=== PATIENT | female | born 1950 | race Caucasian/White ===

== ENCOUNTER 2017-05-16 10:05 | Emergency (ER) | payer MEDICARE ==
[2017-05-16] MEDS ORDERED: Aspirin Low Dose CHEW TAB* 81 MG PO ONE (10:19)
[2017-05-16 10:48] LABS: Hematocrit 38 % (35-47); Hemoglobin 12.9 g/dl (12.0-16.0); Mean Corpuscular HGB Conc 34 g/dl (31-36); Mean Corpuscular Hemoglobin 31 pg (27-31); Mean Corpuscular Volume 91 fL (80-97); Mean Platelet Volume 8 um3 (7.4-10.4); Red Cell Distribution Width 13 % (10.5-15); White Blood Count 7.5 10^3/ul (3.5-10.8)
--- NOTE | 2017-05-16 10:54 | RAD ---
HISTORY: Chest pain COMPARISONS: November 29, 2014 VIEWS:1: Single frontal portable view of the chest at 10:25 AM FINDINGS: LINES AND TUBES: None. CARDIOMEDIASTINAL SILHOUETTE: The cardiomediastinal silhouette is normal for portable technique. PLEURA: The costophrenic angles are sharp. No pleural abnormalities are noted. LUNG PARENCHYMA: The lungs are clear. ABDOMEN: The upper abdomen is clear. There is no subphrenic gas. BONES AND SOFT TISSUES: No bone or soft tissue abnormalities are noted. IMPRESSION: NO ACTIVE CARDIOPULMONARY DISEASE.
[2017-05-16 11:05] LABS: Albumin 4.5 g/dL (3.2-5.2); BUN/Creatinine Ratio 15.2 (8-20); Calcium 9.5 mg/dL (8.6-10.3); EGFR African American 94.2 (>60); EGFR Non-African American 73.3 (>60); Globulin 2.4 g/dL (2-4); Magnesium 2.1 mg/dL (1.9-2.7); Total Bilirubin 0.6 mg/dL (0.2-1.0); Total Protein 6.9 g/dL (6.4-8.9)
[2017-05-16 11:33] LABS: TSH (Thyroid Stimulating Horm) 0.95 mcIU/mL (0.34-5.60)
[2017-05-16] MEDS ORDERED: Furosemide IV* 10 MG/ML 2 ML VIAL (20 MG) IV SLOW PU ONE (12:26)
[2017-05-16] MEDS ORDERED: Acetaminophen TAB* 325 MG PO ONE (13:15)
--- NOTE | 2017-05-16 14:15 | ED ---
Lashonda Doherty Auryana, scribed for Colin Renee MD on 05/16/17 at 1032 . HPI Chest Pain - HPI Summary HPI Summary: 66 year old female presents with intermittent chest pain starting 4 days ago. The pain is located on the left side of her chest, does not radiates, and is not related to any activates or exertion. She characterizes the pain as an achy pressure. She reports that each time she has chest pain, NTG relieves it but then the pain returns after. She denies any current chest pain on ED physician visit. She also has left arm weakness, and reports that last night she had a headache, and "stomach ache". She reports that she took her BP at home last night - 130/68. She denies any nausea, vomiting, or any edema in the LE. 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 - History of Current Complaint Chief Complaint: EDChestPainROMI Time Seen by Provider: 05/16/17 10:19 Hx Obtained From: Patient Onset/Duration: Started Days Ago, Still Present Timing: Intermittent Initial Severity: Moderate Current Severity: None Pain Intensity: 6 - denies any CP now Pain Scale Used: 0-10 Numeric Chest Pain Location: Discrete at: - left side of chest Chest Pain Radiates: No Character: Pressure/Squeezing - achy pressure Alleviating Factor(s): NTG 123 Associated Signs and Symptoms: Positive: Chest Pain, Headaches, Weakness - left arm weakness, Other: - "stomach ache". Negative: Nausea, Vomiting, Edema Related History: Similar Episode/Dx as: - SEE HPI - Allergy/Home Medications Allergies/Adverse Reactions: Allergies Allergy/AdvReac Type Severity Reaction Status Date / Time Meperidine [From Demerol HCl] Allergy Mild Nausea And Verified 02/28/17 10:00 Vomiting Home Medications: Home Medications Gnepqkw-Bhhakmdjmyjud-Vzembkse [Excedrin Extra Strength] 1 tab PO TID PRN [History Confirmed 05/16/17] Atorvastatin* [Lipitor*] 20 mg PO BEDTIME 05/16/17 [History Confirmed 05/16/17] Biotin 5,000 mcg PO DAILY 05/16/17 [History Confirmed 05/16/17] Cholecalciferol [Vitamin D] 1,000 unit PO BID 05/16/17 [History Confirmed ] Cyanocobalamin TAB* [Vitamin B12 TAB*] 1,000 mcg PO SUWE 05/16/17 [History Confirmed 05/16/17] DULoxetine DR CAP* [Cymbalta CAP*] 60 mg PO DAILY 05/16/17 [History Confirmed ] Gabapentin CAP(*) [Neurontin 300 CAP(*)] 300 mg PO TID 05/16/17 [History Confirmed 05/16/17] Nitroglycerin 0.6 MG/HR PATCH* [Nitroglycerin 15 MG PATCH*] 1 patch TRANSDERM DAILY 05/16/17 [History Confirmed 05/16/17] Nitroglycerin TAB 0.4 MG* 0.4 mg SL Q5M PRN 05/16/17 [History Confirmed 05/16/17 ] Nortriptyline CAP* [Pamelor CAP*] 10 mg PO BEDTIME 05/16/17 [History Confirmed 05/16/17] [place]-3 Fatty Acids [Fish Oil 1200 mg] 2 cap PO DAILY 05/16/17 [History Confirmed 05/16/17] Spironolactone TAB* [Aldactone TAB*] 25 mg PO DAILY 05/16/17 [History Confirmed 05/16/17] Valsartan TAB* [Diovan TAB*] 80 mg PO DAILY 05/16/17 [History Confirmed 05/16/17 ] Vitamin E 1,000 unit PO DAILY 05/16/17 [History Confirmed 05/16/17] amLODIPine TAB* [Norvasc 5 mg TAB*] 5 mg PO BID 05/16/17 [History Confirmed ] PMH/Surg Hx/FS Hx/Imm Hx Endocrine/Hematology History: Denies: Hx Diabetes Cardiovascular History: Reports: Hx Angina, Hx Hypertension Denies: Hx Coronary Artery Disease, Hx Hypercholesterolemia, Hx Myocardial Infarction, Hx Pacemaker/ICD Respiratory History: Reports: Other Respiratory Problems/Disorders - CONNECTIVE TISSUE DISEASE Denies: Hx Asthma, Hx Chronic Obstructive Pulmonary Disease (COPD) History: Denies: Hx Renal Disease Sensory History: Denies: Hx Hearing Aid Psychiatric History: Denies: Hx Panic Disorder - Cancer History Hx Chemotherapy: No Hx Radiation Therapy: No - Surgical History Surgery Procedure, Year, and Place: BLADDER SURGERY DIALATION 1972. RIGHT HEEL REPAIR. GALLBLADDER. HYSTERECTOMY-LAP TUBAL. L5-S1 BACK SURGERY-NO METAL. RIGHT WRIST SURGERY-NO METAL Infectious Disease History: Denies: Traveled Outside the [place] in Last 30 Days - Family History Known Family History: Positive: Diabetes - Social History Occupation: Retired Lives: Alone Alcohol Use: Occasionally Hx Substance Use: No Substance Use Type: Reports: None Hx Tobacco Use: Yes Smoking Status (MU): Former Smoker Review of Systems Constitutional: Negative Negative: Fever Eyes: Negative ENT: Negative Positive: Chest Pain Respiratory: Negative Positive: Other - "stomach ache". Negative: Vomiting, Nausea Genitourinary: Negative Musculoskeletal: Negative Negative: Edema Skin: Negative Positive: Headache, Weakness - left arm weakness Psychological: Normal All Other Systems Reviewed And Are Negative: Yes Physical Exam - Summary Physical Exam Summary: VITAL SIGNS: Reviewed. GENERAL: Patient is a well-developed and nourished female who is lying comfortable in the stretcher. Patient is not in any acute respiratory distress. HEAD AND FACE: No signs of trauma. No ecchymosis, hematomas or skull depressions. No sinus tenderness. EYES: PERRLA, EOMI x 2, No injected conjunctiva, no nystagmus. EARS: Hearing grossly intact. Ear canals and tympanic membranes are within normal limits. MOUTH: Oropharynx within normal limits. NECK: Supple, trachea is midline, no adenopathy, no JVD, no carotid bruit, no c- spine tenderness, neck with full ROM. CHEST: Symmetric, no tenderness at palpation LUNGS: Clear to auscultation bilaterally. No wheezing or crackles. CVS: Regular rate and rhythm, S1 and S2 present, no murmurs or gallops appreciated. ABDOMEN: Soft, non-tender. No signs of distention. No rebound no guarding, and no masses palpated. Bowel sounds are normal. EXTREMITIES: FROM in all major joints, no edema, no cyanosis or clubbing. NEURO: Alert and oriented x 3. No acute neurological deficits. Speech is normal and follows commands. SKIN: Dry and warm. Triage Information Reviewed: Yes Vital Signs On Initial Exam: Initial Vitals Temp Pulse Resp BP Pulse Ox 97.8 F 64 20 137/71 98 05/16/17 10:06 05/16/17 10:05/16/17 10:06 05/16/17 10:05/16/17 10:06 Vital Signs Reviewed: Yes Diagnostics - Vital Signs Vital Signs Temp Pulse Resp BP Pulse Ox 05/16/17 10:06 97.8 F 64 20 137/71 98 - Laboratory Lab Results: Lab Results 05/16/17 05/16/17 05/16/17 Range/Units 10:40 10:40 10:40 WBC 7.5 (3.5-10.8) 10^3/ul RBC 4.20 (4.0-5.4) 10^6/ul Hgb 12.9 (12.0-16.0) g/dl Hct 38 (35-47) % MCV 91 (80-97) fL MCH 31 (27-31) pg MCHC 34 (31-36) g/dl RDW 13 (10.5-15) % Plt Count 360 (150-450) 10^3/ul MPV 8 (7.4-10.4) um3 Neut % (Auto) 59.4 (38-83) % Lymph % (Auto) 27.3 (25-47) % Nobles % (Auto) 8.2 (1-9) % Eos % (Auto) 4.0 (0-6) % Baso % (Auto) 1.1 (0-2) % Absolute Neuts (auto) 4.4 (1.5-7.7) 10^3/ul Absolute Lymphs (auto) 2.0 (1.0-4.8) 10^3/ul Absolute Monos (auto) 0.6 (0-0.8) 10^3/ul Absolute Eos (auto) 0.3 (0-0.6) 10^3/ul Absolute Basos (auto) 0.1 (0-0.2) 10^3/ul Absolute Nucleated RBC 0.01 10^3/ul Nucleated RBC % 0.1 APTT 32.3 (26.0-36.3) seconds Sodium 132 L (133-145) mmol/L Potassium 4.0 (3.5-5.0) mmol/L Chloride 101 (101-111) mmol/L Carbon Dioxide 26 (22-32) mmol/L Anion Gap 5 (2-11) mmol/L BUN 12 (6-24) mg/dL Creatinine 0.79 (0.51-0.95) mg/dL Est GFR ( Amer) 94.2 (>60) Est GFR (Non-Af Amer) 73.3 (>60) BUN/Creatinine Ratio 15.2 (8-20) Glucose 97 (70-100) mg/dL Lactic Acid (0.5-2.0) mmol/L Calcium 9.5 (8.6-10.3) mg/dL Magnesium 2.1 (1.9-2.7) mg/dL Total Bilirubin 0.60 (0.2-1.0) mg/dL AST 15 (13-39) U/L ALT 13 (7-52) U/L Alkaline Phosphatase 66 (34-104) U/L Total Creatine Kinase 64 (10-223) U/L CK-MB (CK-2) 1.7 (0.6-6.3) ng/mL Troponin I 0.00 (<0.04) ng/mL B-Natriuretic Peptide ( - 100) pg/mL Total Protein 6.9 (6.4-8.9) g/dL Albumin 4.5 (3.2-5.2) g/dL Globulin 2.4 (2-4) g/dL Albumin/Globulin Ratio 1.9 (1-3) TSH 0.95 (0.34-5.60) mcIU/mL 05/16/17 05/16/17 05/16/17 Range/Units 10:40 10:40 13:10 WBC (3.5-10.8) 10^3/ul RBC (4.0-5.4) 10^6/ul Hgb (12.0-16.0) g/dl Hct (35-47) % MCV (80-97) fL MCH (27-31) pg MCHC (31-36) g/dl RDW (10.5-15) % Plt Count (150-450) 10^3/ul MPV (7.4-10.4) um3 Neut % (Auto) (38-83) % Lymph % (Auto) (25-47) % Nobles % (Auto) (1-9) % Eos % (Auto) (0-6) % Baso % (Auto) (0-2) % Absolute Neuts (auto) (1.5-7.7) 10^3/ul Absolute Lymphs (auto) (1.0-4.8) 10^3/ul Absolute Monos (auto) (0-0.8) 10^3/ul Absolute Eos (auto) (0-0.6) 10^3/ul Absolute Basos (auto) (0-0.2) 10^3/ul Absolute Nucleated RBC 10^3/ul Nucleated RBC % APTT (26.0-36.3) seconds Sodium (133-145) mmol/L Potassium (3.5-5.0) mmol/L Chloride (101-111) mmol/L Carbon Dioxide (22-32) mmol/L Anion Gap (2-11) mmol/L BUN (6-24) mg/dL Creatinine (0.51-0.95) mg/dL Est GFR ( Amer) (>60) Est GFR (Non-Af Amer) (>60) BUN/Creatinine Ratio (8-20) Glucose (70-100) mg/dL Lactic Acid 1.0 (0.5-2.0) mmol/L Calcium (8.6-10.3) mg/dL Magnesium (1.9-2.7) mg/dL Total Bilirubin (0.2-1.0) mg/dL AST (13-39) U/L ALT (7-52) U/L Alkaline Phosphatase (34-104) U/L Total Creatine Kinase (10-223) U/L CK-MB (CK-2) (0.6-6.3) ng/mL Troponin I 0.09 H* (<0.04) ng/mL B-Natriuretic Peptide 464 H ( - 100) pg/mL Total Protein (6.4-8.9) g/dL Albumin (3.2-5.2) g/dL Globulin (2-4) g/dL Albumin/Globulin Ratio (1-3) TSH (0.34-5.60) mcIU/mL Result Diagrams: 05/16/17 10:40 05/16/17 10:40 Lab Statement: Any lab studies that have been ordered have been reviewed, and results considered in the medical decision making process. - Radiology CXR Xray Interpretation: No Acute Changes Radiology Interpretation Completed By: Radiologist - EKG 10:20 EKG Interpretation: sinus rhythm @ 60 bpm, no ST elevation Re-Evaluation - Re-Evaluation First Eval Re-Evaluation Time: 13:30 - discussed discharge and PCP F/U Chest Pain Course/Dx - Course Assessment/Plan: 66 year old female presents with intermittent chest pain starting 4 days ago. The pain is located on the left side of her chest, does not radiates, and is not related to any activates or exertion. She characterizes the pain as an achy pressure. She reports that each time she has chest pain, NTG relieves it but then the pain returns after. She denies any current chest pain on ED physician visit. She also has left arm weakness, and reports that last night she had a headache, and "stomach ache". She reports that she took her BP at home last night - 130/68. She denies any nausea, vomiting, or any edema in the LE. 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 CXR - NAD. EKG- sinus rhythm @ 60 bpm, no ST elevation. I discussed the patient with Dr. Roberson, and he recommended discharge and follow up with Dr. Birch. I checked the second troponin and it has increased to 0.09. She continues to be asymptomatic. However because of the bump in troponin I discussed the case with Dr. Martinez and he accepted the patient for admission. She is hemodynamically stable and A+O X 3 - Chest Pain Differential Diagnosis/HQI/PQRI: Acute ID, ACS, Angina, CHF, Chest Wall, Lower Respiratory Infection, Pulmonary Edema - Diagnoses Provider Diagnoses: Increased troponin r/o ACS, CHF exacerbation - Provider Notifications Discussed Care Of Patient With: Onesimo Casanova Time Discussed With Above Provider: 13:51 - agrees to admit Instructed by Provider To: Admit As Inpatient Discharge - Discharge Plan Condition: Stable Disposition: ADMITTED TO [facility] The documentation as recorded by the Lashonda fang Auryana accurately reflects the service I personally performed and the decisions made by , Colin Renee MD.
[2017-05-16 16:54] VITALS: BP 126/69
== END 2017-05-16 16:54 | disposition home or self-care (01) ==
LOC: ED 10:05
DX: I50.9 Heart failure, unspecified (principal); R07.9 Chest pain, unspecified; R51 Headache; R53.1 Weakness; Z87.891 Personal history of nicotine dependence
CPT/HCPCS: 36415; 71010; 80053; 82550; 82553; 83605; 83735; 83880; 84443; 84484; 85025; 85730; 93005; 99283; A9270-GY; J1940

== ENCOUNTER 2018-06-17 18:50 | Emergency (ER) | payer MEDICARE ==
[2018-06-17 19:00] VITALS: BP 134/87
== END 2018-06-17 21:05 | disposition left against medical advice (07) ==
LOC: ED 18:50
DX: R11.0 Nausea (principal); Z53.21 Procedure and treatment not carried out due to patient leaving prior to being seen by health care provider; R10.84 Generalized abdominal pain

== ENCOUNTER 2018-06-19 14:20 | Emergency (ER) | payer MEDICARE ==
[2018-06-19] MEDS ORDERED: Ondansetron INJ* 2 MG/ML VIAL IV ONE (17:24)
[2018-06-19] MEDS ORDERED: NS 0.9% 1000 ML* 1,000 ML IV ONE (17:24)
[2018-06-19 17:48] LABS: ABS Basophils 0.1 10^3/ul (0-0.2); ABS Eosinophils 0.2 10^3/ul (0-0.6); ABS Lymphocytes 2.2 10^3/ul (1.0-4.8); ABS Monocytes 0.7 10^3/ul (0-0.8); ABS Neutrophils 6.3 10^3/ul (1.5-7.7); ABS Nucleated RBC 0 10^3/ul; Eosinophil % 2.3 % (0-6); Hematocrit 38 % (35-47); Hemoglobin 13.1 g/dl (12.0-16.0); Mean Corpuscular HGB Conc 35 g/dl (31-36); Mean Corpuscular Hemoglobin 30 pg (27-31); Mean Corpuscular Volume 88 fL (80-97); Mean Platelet Volume 7.7 um3 (7.4-10.4); Nucleated Red Blood Cells % 0; Platelet Count 430 10^3/ul (150-450); Red Cell Distribution Width 13 % (10.5-15); White Blood Count 9.6 10^3/ul (3.5-10.8)
[2018-06-19 17:57] LABS: INR 0.97 (0.77-1.02)
--- NOTE | 2018-06-19 17:57 | ED ---
Abdominal Pain/Female - HPI Summary HPI Summary: Patient presents with right upper abdominal/rib discomfort and fullness. She's noticed this gradually progressing over the past week. Associated symptoms include decreased appetite the past couple of days. As a result she has not really had any bowel movements if any. She is still passing gas. She doesn't have louie nausea but doesn't feel like eating. Denies fevers, chills, vomiting , chest pain, shortness of breath. She does feel like she is retaining fluids over the past couple of weeks. History of CHF - does not feel this is worse as of late. She reports this is been evaluated recently by her contract paralegal was also monitoring her symptoms. She takes hydrochlorothiazide daily and torsemide as needed. No lower extremity edema however her abdomen is full and bloated. She feels wiped out in general is typically an active person - is having a hard time keeping up with her typical activities. Was seen by her PCP a month ago and had an elevated alkaline phosphatase. This resulted in an abdominal ultrasound which showed a fatty liver but otherwise normal organs. She's also had intermittent increase in platelets however these are normal as of late. She's had evaluation through hematology oncology with Dr. Tucker who reports he "didn't find leukemia" per patient. She denies history of alcohol abuse however she does take multiple meds not only for fibromyalgia and hypertension but also headaches. She is followed by rheumatology and was on a course of methotrexate in the past however it was not helping her symptoms so it was stopped. She sees Dr. Burger for headaches and white matter disease which he follows with MRI's. She's had multiple abdominal surgeries including cholecystectomy and VANDANA. No history of bowel obstruction. 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" Denies: Hx Diabetes Cardiovascular History: Reports: Hx Angina, Hx Congestive Heart Failure, Hx Hypertension Denies: Hx Coronary Artery Disease, Hx Hypercholesterolemia, Hx Myocardial Infarction, Hx Pacemaker/ICD Respiratory History: Denies: Hx Asthma, Hx Chronic Obstructive Pulmonary Disease (COPD) GI History: Reports: Hx Gall Bladder Disease - s/p cholecystectomy, Hx Hiatal Hernia Denies: Hx Obstructive Bowel History: Denies: Hx Renal Disease Sensory History: Denies: Hx Hearing Aid Psychiatric History: Denies: Hx Panic Disorder - Cancer History Hx Chemotherapy: No Hx Radiation Therapy: No - Surgical History Surgery Procedure, Year, and Place: BLADDER SURGERY DIALATION 1972. RIGHT HEEL REPAIR. GALLBLADDER. HYSTERECTOMY-LAP TUBAL. L5-S1 BACK SURGERY-NO METAL (DISCECTOMY 98);. RIGHT WRIST SURGERY-NO METAL Infectious Disease History: No Infectious Disease History: Denies: Traveled Outside the [place] in Last 30 Days - Family History Known Family History: Positive: Diabetes - Social History Lives: With Family - and 90 y.o. father Alcohol Use: Occasionally Hx Substance Use: No Substance Use Type: Reports: None Hx Tobacco Use: Yes Smoking Status (MU): Former Smoker Review of Systems Positive: Fatigue. Negative: Fever, Chills ENT: Negative Negative: Sore Throat Cardiovascular: Negative Negative: Palpitations, Chest Pain Respiratory: Negative Negative: Shortness Of Breath, Cough Positive: Abdominal Pain, Nausea. Negative: Vomiting, Diarrhea Genitourinary: Negative Negative: dysuria, frequency, flank pain, urgency Musculoskeletal: Negative Skin: Negative Positive: Headache - has a dull MCINTYRE which is not abnormal for her - does not want anything for pain Psychological: Normal - concerned about feeling ill but calm and polite All Other Systems Reviewed And Are Negative: Yes Physical Exam Triage Information Reviewed: Yes Vital Signs On Initial Exam: Initial Vitals Temp Pulse Resp BP Pulse Ox 98.4 F 71 16 162/94 95 06/19/18 14:23 06/19/18 14:23 06/19/18 14:23 06/19/18 14:23 06/19/18 14:23 Vital Signs Reviewed: Yes Appearance: Positive: Well-Nourished, Ill-Appearing - appears mildly ill, fatigued, Pain Distress - appears mildly uncomfortable - lying on stretcher Skin: Positive: Warm, Skin Color Reflects Adequate Perfusion, Dry - no ecchymosis over ab/flanks Head/Face: Positive: Normal Head/Face Inspection Eyes: Positive: Normal, EOMI, Other: - possibly early signs of icteric sclera ENT: Positive: Hearing grossly normal, Pharynx normal - oral mucosa dry (pt reports this happens from meds) Neck: Positive: Supple, Nontender Respiratory/Lung Sounds: Positive: Clear to Auscultation, Breath Sounds Present. Negative: Rales, Rhonchi, Wheezes Cardiovascular: Positive: Normal, RRR, S1, S2. Negative: Murmur, Rub, Leg Edema Left, Leg Edema Right Abdomen Description: Positive: Nontender - entire upper abdomen is full, firm and w/ TTP - no rebounding. Negative: Guarding Bowel Sounds: Positive: Hypoactive Musculoskeletal: Positive: Normal, Strength/ROM Intact Neurological: Positive: Normal, Sensory/Motor Intact, Alert, Oriented to Person Place, Time, CN Intact II-III Psychiatric: Positive: Normal - pleasant, cooperative Diagnostics - Vital Signs Vital Signs Temp Pulse Resp BP Pulse Ox 06/19/18 14:23 98.4 F 71 16 162/94 95 - Laboratory Lab Results: Lab Results 06/19/18 Range/Units 17:35 WBC 9.6 (3.5-10.8) 10^3/ul RBC 4.30 (4.00-5.40) 10^6/ul Hgb 13.1 (12.0-16.0) g/dl Hct 38 (35-47) % MCV 88 (80-97) fL MCH 30 (27-31) pg MCHC 35 (31-36) g/dl RDW 13 (10.5-15) % Plt Count 430 (150-450) 10^3/ul MPV 7.7 (7.4-10.4) um3 Neut % (Auto) 66.2 (38-83) % Lymph % (Auto) 23.0 L (25-47) % Alfalfa % (Auto) 7.7 H (0-7) % Eos % (Auto) 2.3 (0-6) % Baso % (Auto) 0.8 (0-2) % Absolute Neuts (auto) 6.3 (1.5-7.7) 10^3/ul Absolute Lymphs (auto) 2.2 (1.0-4.8) 10^3/ul Absolute Monos (auto) 0.7 (0-0.8) 10^3/ul Absolute Eos (auto) 0.2 (0-0.6) 10^3/ul Absolute Basos (auto) 0.1 (0-0.2) 10^3/ul Absolute Nucleated RBC 0 10^3/ul Nucleated RBC % 0 Result Diagrams: 06/19/18 17:35 Lab Statement: Any lab studies that have been ordered have been reviewed, and results considered in the medical decision making process. Abdominal Pain Fem Course/Dx - Course Course Of Treatment: Patient presents with progressive upper abdominal fullness and 2 days of decreased appetite. She has known increase in her alkaline phosphatase and so further liver workup was ordered today as well as GGT to rule out that her versus bone involvement. She is a history of hiatal hernia and so CT was ordered to assess the status. ET and labs will also evaluate for pancreatic issues, bowel obstruction, abnormal lymph nodes or lytic lesions in the event that alkaline phosphatase is elevated for bone pathology. Patient reports she does not need anything for pain at this time. IV fluids were ordered as she has a dry mouth and has not been eating or drinking much the past couple of days. If BMP is elevated or renal function appears impaired, IV fluids may be slowed or stopped completely. Patient signed out to Mili MAYA in stable condition. - Diagnoses Provider Diagnoses: Abdominal fullness Discharge - Discharge Plan Referrals: Tangela Elizondo NP [Primary Care Provider] -
[2018-06-19 18:02] LABS: Urine Appearance Clear; Urine Blood 1+ (Negative); Urine Color Yellow; Urine Ketones Negative (Negative); Urine Protein Negative (Negative); Urine Red Blood Cell 1+(3-5/hpf) (Absent); Urine Specific Gravity 1.012 (1.010-1.030); Urine Urobilinogen Negative (Negative); Urine White Blood Cell Trace(0-5/hpf) (Absent)
[2018-06-19] MEDS ORDERED: Iohexol 300* (CONTRAST) 10 ML SDV IV ONE (18:29)
--- NOTE | 2018-06-19 19:07 | RAD ---
INDICATION: Upper abdominal pain. Constipation. COMPARISON: Abdominal sonogram May 27, 2018 TECHNIQUE: Axial source images were obtained from the hemidiaphragms to the symphysis pubis following administration of oral and intravenous contrast. 91 mL Omnipaque 300 was utilized. Coronal and sagittal reconstructed images were acquired. Lung bases: The lung bases are clear. There is cardiac pacemaker artifact. Liver: The liver is enlarged with findings of hepatic steatosis. There are no masses. There is no ductal dilatation. Gallbladder: Cholecystectomy. Spleen: The spleen is normal in size. There are no masses. Pancreas: There is no focal pancreatic mass or ductal dilatation. Adrenal glands: There is no evidence of adrenal mass. Kidneys: The kidneys are normal in size and position. There are prompt nephrograms and there is prompt excretion bilaterally. There are no renal parenchymal masses. There is no evidence of nephrolithiasis. Adenopathy: There is no evidence of adenopathy by size criteria. Fluid collections: There are no free or localized fluid collections. Vessels:There are no significant atherosclerotic changes involving the aorta. There is no focal aneurysm. The iliac vessels are normal in caliber. The IVC appears normal. GI tract: There is a small hiatal hernia. The upper GI tract is otherwise unremarkable. There is a large amount of stool throughout the colon. Which appears mildly distended. There is no obstruction Pelvic organs: Hysterectomy. No adnexal mass Bladder: There are no bladder masses. Abdominal and pelvic soft tissues: The extraperitoneal abdominal and pelvic soft tissues appear normal.. Osseous structures: There are no acute osseous findings. Other: None IMPRESSION: 1. Hepatomegaly with hepatic steatosis 2. Small hiatal hernia. 3. Large amount retained stool in mildly distended colon
[2018-06-19] MEDS ORDERED: Ketorolac INJ* 30 MG/ML 1 ML VIAL IV PUSH ONE (19:40)
--- NOTE | 2018-06-19 19:40 | ED ---
Progress - Progress Note Progress Note: patient signed out by shonda pending labs and CT labs wbc normal. lft normal. urine probably contaminant CT shows: IMPRESSION: 1. Hepatomegaly with hepatic steatosis 2. Small hiatal hernia. 3. Large amount retained stool in mildly distended colon discussed with patient and will treat with magnesium citrate and colace for constipation. Course/Dx - Course Course Of Treatment: Patient presents with progressive upper abdominal fullness and 2 days of decreased appetite. She has known increase in her alkaline phosphatase and so further liver workup was ordered today as well as GGT to rule out that her versus bone involvement. She is a history of hiatal hernia and so CT was ordered to assess the status. ET and labs will also evaluate for pancreatic issues, bowel obstruction, abnormal lymph nodes or lytic lesions in the event that alkaline phosphatase is elevated for bone pathology. Patient reports she does not need anything for pain at this time. IV fluids were ordered as she has a dry mouth and has not been eating or drinking much the past couple of days. CT shows constipation. labs wnl. will treat with mg citrate and colace. patient understand and agrees with plan. - Diagnoses Provider Diagnoses: Abdominal pain, Constipation Discharge - Sign-Out/Discharge Documenting (check all that apply): Receiving Sign-Out Receiving patient FROM: Shonda Joseph - Discharge Plan Condition: Good Disposition: HOME Prescriptions: Docusate CAP* [Colace Cap*] 100 mg PO DAILY #21 cap Patient Education Materials: Constipation (ED) Referrals: Tangela Elizondo, TEST ENGINE EVALUATOR [Primary Care Provider] - Additional Instructions: take magnesium citrate once Take Colace daily Follow up with primary within 5 days Return to ED if develop any new or worsening symptoms - Billing Disposition and Condition Condition: GOOD Disposition: Home
[2018-06-19] MEDS ORDERED: Magnesium CITRATE* 300 ML BTL PO ONE (19:46)
[2018-06-19 20:38] VITALS: BP 153/88
== END 2018-06-19 20:35 | disposition home or self-care (01) ==
LOC: ED 14:20
DX: R10.11 Right upper quadrant pain (principal); R74.8 Abnormal levels of other serum enzymes; K44.9 Diaphragmatic hernia without obstruction or gangrene; K76.0 Fatty (change of) liver, not elsewhere classified; K63.89 Other specified diseases of intestine; Z90.710 Acquired absence of both cervix and uterus; Z87.891 Personal history of nicotine dependence; Z88.5 Allergy status to narcotic agent
CPT/HCPCS: 36415; 74177; 80053; 81003; 81015; 82140; 82977; 83605; 83690; 83735; 83880; 85025; 85610; 85730; 86140; 87077; 87086; 96374; 96375; 99283; A9270-GY; J1885; J2405; Q9967

== ENCOUNTER 2019-08-20 18:16 | Emergency (ER) | payer MEDICARE ==
--- NOTE | 2019-08-20 20:22 | ED ---
Lower Extremity - HPI Summary HPI Summary: This patient is a 68 year old female presenting to [facility] with a chief complaint of left knee pain and swelling. She went to Dr. Najera and was suppose to get a dopplar US to evaluate for a popliteal cyst on Friday. Pain has been getting worse over time. She states she was experiencing pain and swelling to the medial knee before but now states she is also experiencing pain and swelling in the dorsal knee. The patient rates her pain 9/10 in severity. Pt denies any fever, chills, erythema of eyes, sore throat, CP, SOB, cough, abdominal pain, N/ V, dysuria, hematuria, myalgia, rash, or dizziness. - History of Current Complaint Chief Complaint: EDExtremityLower Stated Complaint: LEFT KNEE PAIN PER PT Time Seen by Provider: 08/20/19 19:57 Hx Obtained From: Patient Pain Intensity: 9 Pain Scale Used: 0-10 Numeric Associated Signs And Symptoms: Positive: Swelling, Knee Pain - Allergies/Home Medications Allergies/Adverse Reactions: Allergies Allergy/AdvReac Type Severity Reaction Status Date / Time meperidine [From Demerol] Allergy Nausea And Verified 08/13/19 14:40 Vomiting PMH/Surg Hx/FS Hx/Imm Hx Endocrine/Hematology History: Reports: Hx Blood Disorders - intermittent platelet elevation Denies: Hx Diabetes Cardiovascular History: Reports: Hx Angina, Hx Congestive Heart Failure, Hx Hypertension, Hx Pacemaker/ICD - BeDo - NO MRIs - NOT COMP W/ [facility] MRI UNTIS Denies: Hx Coronary Artery Disease, Hx Hypercholesterolemia, Hx Myocardial Infarction Respiratory History: Reports: Other Respiratory Problems/Disorders - CONNECTIVE TISSUE DISEASE Denies: Hx Asthma, Hx Chronic Obstructive Pulmonary Disease (COPD) GI History: Reports: Hx Gall Bladder Disease - s/p cholecystectomy, Hx Hiatal Hernia Denies: Hx Obstructive Bowel History: Denies: Hx Renal Disease Musculoskeletal History: Denies: Hx Osteoporosis Sensory History: Denies: Hx Hearing Aid Psychiatric History: Denies: Hx Panic Disorder - Cancer History Hx Chemotherapy: No Hx Radiation Therapy: No - Surgical History Surgery Procedure, Year, and Place: BeDo - NO MRIs - NOT COMP W/ [facility] MRI UNTIS Infectious Disease History: No Infectious Disease History: Denies: Traveled Outside the [place] in Last 30 Days - Family History Known Family History: Positive: Diabetes - Social History Alcohol Use: None Hx Substance Use: No Substance Use Type: Reports: None Hx Tobacco Use: Yes Smoking Status (MU): Former Smoker Review of Systems Negative: Fever, Chills Negative: Erythema Negative: Sore Throat Negative: Chest Pain Negative: Shortness Of Breath, Cough Negative: Abdominal Pain, Vomiting, Nausea Negative: dysuria, hematuria Positive: Edema, Other - Left knee pain. Negative: Myalgia Negative: Rash Neurological: Other - Neg: Dizziness All Other Systems Reviewed And Are Negative: No Physical Exam - Summary Physical Exam Summary: Constitutional: Well-developed, Well-nourished, Alert. (-) Distressed Skin: Warm, Dry. Lump overlying her patellar tendon with focal mild fluctuance and tenderness over the medial meniscus, but also tenderness over the lateral meniscus. No erythema or induration. HENT: Normocephalic; Atraumatic Eyes: Conjunctiva normal Neck: Musculoskeletal ROM normal neck. (-) JVD, (-) Stridor, (-) Tracheal deviation Cardio: Rhythm regular, rate normal, Heart sounds normal; Intact distal pulses; The pedal pulses are 2+ and symmetric. Radial pulses are 2+ and symmetric. (-) Murmur Pulmonary/Chest wall: Effort normal. (-) Respiratory distress, (-) Wheezes, (-) Rales Abd: Soft, (-) tenderness, (-) Distension, (-) Guarding, (-) Rebound Musculoskeletal: (-) Edema Lymph: (-) Cervical adenopathy Neuro: Alert, Oriented x3 Psych: Mood and affect Normal Triage Information Reviewed: Yes Vital Signs On Initial Exam: Initial Vitals Temp Pulse Resp BP Pulse Ox 97.7 F 70 16 142/88 97 08/20/19 18:32 08/20/19 18:32 08/20/19 18:32 08/20/19 18:32 08/20/19 18:32 Vital Signs Reviewed: Yes Procedures - Procedure Summary Procedure Summary: JOINT ASPIRATION INDICATION: KNEE SWELLING L KNEE PHYSICIAN: GHULAM ARZOLA MD DETAILS: INFORMED CONSENT, RISKS INCLUDING INFECTION, BLEEDING, NERVE INJURY UNDERSTOOD. TIMEOUT OCCURRED. TOTAL OF 10 ML OF 2% LIDO/EPI INSTILLED. MEDIAL APPROACH. TOTAL OF 20 ML OF SANGUINOUS JOINT FLUID ASPIRATED, SENT TO LAB, TOLERATED WELL. - Sedation Patient Received Moderate/Deep Sedation with Procedure: No Diagnostics - Vital Signs Vital Signs Temp Pulse Resp BP Pulse Ox 08/20/19 18:32 97.7 F 70 16 142/88 97 - Laboratory Result Diagrams: 08/20/19 21:43 08/20/19 21:43 Lab Statement: Any lab studies that have been ordered have been reviewed, and results considered in the medical decision making process. - Ultrasound No standard instances Ultrasound Interpretation Completed By: Radiologist Summary of Ultrasound Findings: LLE: 1. Negative LLE venous duplex exam without evidence of deep venous thrombosis. 2. Fluid collection at the medial aspect of the knee measuring 4.6 x 0.5 x 1.9 cm which may reflect a miniscal cyst. ED Provider has reviewed this report. Lower Extremity Course/Dx - Course Course Of Treatment: This patient is a 68 year old female presenting to [facility] with a chief complaint of left knee pain and swelling. Physical exam reveals Lump overlying her patellar tendon with focal mild fluctuance and tenderness over the medial meniscus, but also tenderness over the lateral meniscus. US LLE reveals Fluid collection at the medial aspect of the knee measuring 4.6 x 0.5 x 1.9 cm which may reflect a miniscal cyst. The patient will be signed out to Dr. Curiel pending bloodwork and consult at shift change 2200. As the patient has elevated white blood cell count, and also swelling on the medial aspect of the way, we didn't pursue the aspiration. Inflammatory markers are negative, fluid did not appear concerning. Plan for outpatient follow-up with orthopedics on Friday. The patient was provided crutches in the emergency department she was comfortable with this. We also provided a paper prescription for tramadol, and see electronic prescribing system was unable to transmit to her pharmacy. The prescription was for tramadol 50 mg 1 tablet every 12 hours, 8 tablets. No refills. - Diagnoses Provider Diagnoses: Knee swelling Discharge ED - Sign-Out/Discharge Documenting (check all that apply): Patient Departure - Discharge Plan Condition: Good Disposition: HOME Prescriptions: traMADol TAB* [Ultram*] 50 mg PO Q12H PRN #8 tab MDD 2 PRN Reason: Pain - Severe traMADol TAB* [Ultram*] 50 mg PO Q12H PRN #8 tab MDD 2 PRN Reason: Pain - Severe Patient Education Materials: Swollen Knee Joint (ED) Referrals: Adryan Bush MD [Medical Doctor] - (FRIDAY) Additional Instructions: Return to the emergency room for fever, or worse symptoms. - Billing Disposition and Condition Condition: GOOD Disposition: Home - Attestation Statements Document Initiated by Oliibe: Yes Documenting Scribe: Maynor Howard Provider For Whom William is Documenting (Include Credential): Ghulam Arzola MD Scribe Attestation: IMaynor, scribed for Ghulam Arzola MD on 08/21/19 at 0014. Scribe Documentation Reviewed: Yes Provider Attestation: The documentation as recorded by the scribe, Maynor Howard accurately reflects the service I personally performed and the decisions made by me, Ghulam Arzola MD Status of Scribe Document: Viewed
[2019-08-20 21:52] LABS: Hematocrit 37 % (35-47); Hemoglobin 12.4 g/dL (12.0-16.0); Mean Corpuscular HGB Conc 34 g/dL (31-36); Mean Corpuscular Hemoglobin 30 pg (27-31); Mean Corpuscular Volume 88 fL (80-97); Mean Platelet Volume 7.6 fL (7.4-10.4); Platelet Count 441 10^3/uL (150-450); Red Blood Count 4.18 10^6 /uL (3.70-4.87); Red Cell Distribution Width 13 % (10-15); White Blood Count 11.6 10^3/uL (3.5-10.8)
[2019-08-20 22:09] LABS: Albumin 4.4 g/dL (3.2-5.2); Albumin/Globulin Ratio 1.6 (1-3); BUN/Creatinine Ratio 12.8 (8-20); C Reactive Protein 5.27 mg/L (<8.01); Calcium 9.4 mg/dL (8.6-10.3); EGFR African American 79.9 (>60); Globulin 2.7 g/dL (2-4); Potassium 4.2 mmol/L (3.5-5.0); Total Bilirubin 0.4 mg/dL (0.2-1.0); Total Protein 7.1 g/dL (6.4-8.9); Uric Acid 4.5 mg/dL (2.3-6.6)
[2019-08-20] MEDS ORDERED: traMADol TAB* 50 MG PO ONE (22:42)
[2019-08-20] MEDS ORDERED: Lidocaine 2% w EPI 1:100,000* 20 ML MDV VIAL INJ ONE (22:47)
[2019-08-20] MEDS ORDERED: Lidocaine 2% w/ EPI 1:200,000* 20 ML SDV VIAL ONE (23:32)
[2019-08-21 00:12] LABS: Body Fluid Source Synovial Fluid
[2019-08-21 00:41] VITALS: BP 129/79
[2019-08-21 13:06] LABS: Body Fluid Mono 52 %
[2019-08-23 17:33] LABS: Fluid Type, Glucose SYNOVIAL
== END 2019-08-21 00:39 | disposition home or self-care (01) ==
LOC: ED 18:16
DX: M25.462 Effusion, left knee (principal); M17.12 Unilateral primary osteoarthritis, left knee; R60.0 Localized edema; I11.0 Hypertensive heart disease with heart failure; I50.9 Heart failure, unspecified; Z95.810 Presence of automatic (implantable) cardiac defibrillator; L94.9 Localized connective tissue disorder, unspecified; Z88.5 Allergy status to narcotic agent; Z87.891 Personal history of nicotine dependence
CPT/HCPCS: 20610; 36415; 80053; 82945; 83605; 83986; 84550; 85027; 86140; 86618; 87070; 87205; 89051; 99282; A9270-GY

== ENCOUNTER 2019-12-02 07:20 | Day surgery (SDC) | payer MEDICARE ==
[~2019-12-02 07:20] MED LIST: Buffered Lidocaine 1% SYRIN* 1 ML/SYRINGE INTRADERM ONE; Famotidine IV* 10 MG/ML 2 ML (20 mg) IV ONE; Lactated Ringers 1000 ML Bag* 1,000 ML IV SCH
[2019-12-02] MEDS ORDERED: Midazolam* 1 MG/ML 2 ML VIAL (2 MG) ONE (08:37)
[2019-12-02] MEDS ORDERED: Bupivacaine 0.25% SDV PF* 10 ML VIAL INJ ONE (08:49)
[2019-12-02] MEDS ORDERED: Lidocaine 1% w EPI 1:100,000* MDV 20 ML VIAL ONE (08:49)
[2019-12-02] MEDS ORDERED: Dexamethasone IV* 4 MG/ML 1 ML (4 MG) ONE ×2 (09:14→09:42)
[2019-12-02] MEDS ORDERED: Propofol* 10 MG/ML 20 ML BTL ONE (09:14)
[2019-12-02] MEDS ORDERED: diPHENhydraMINE IV* 50 MG/ML 1 ml VIAL (BENADRYL) ONE (09:14)
[2019-12-02] MEDS ORDERED: Dexmedetomidine* 200 MCG/2 ML 2 ML VIAL ONE (09:14)
[2019-12-02] MEDS ORDERED: Ondansetron INJ* 2 MG/ML VIAL ONE (09:14)
[2019-12-02] MEDS ORDERED: KETAMINE HCL* 50 MG/ML 10 ML VIAL ONE (09:15)
[2019-12-02] MEDS ORDERED: fentaNYL* 50 MCG/ML 2 ML VIAL (100 MCG VIAL) ONE (09:15)
[2019-12-02] MEDS ORDERED: Lidocaine 2% PF * 5 ML VIAL ONE (09:19)
[2019-12-02] MEDS ORDERED: DiMENhydriNATE IV* 50 MG/ML VIAL IV PUSH PRN (09:36)
[2019-12-02] MEDS ORDERED: diPHENhydraMINE IV* 50 MG/ML 1 ml VIAL (BENADRYL) IV PRN (09:36)
[2019-12-02] MEDS ORDERED: fentaNYL* 50 MCG/ML 2 ML VIAL (100 MCG VIAL) IV PRN (09:36)
[2019-12-02] MEDS ORDERED: Ondansetron INJ* 2 MG/ML VIAL IV PRN (09:36)
[2019-12-02] MEDS ORDERED: Naloxone* 0.4 MG/ML 1 ML VIAL IV PRN (09:36)
--- NOTE | 2019-12-02 09:51 | OP ---
Operative Report - Blank - Operative Report Date of Operation: 12/02/19 Note: PATIENT: Aminah Zambrano DATE OF : 1950 DATE OF SURGERY: 12/02/2019 SURGEON: Adryan Bush MD TRUCKLOAD CHECKER: FRANCESCO Guzman, whos assistance was necessary for positioning, retraction, help with instrumentation, and closure. ANESTHESIOLOGIST: Dr. Kowalski PREOPERATIVE DIAGNOSIS: Left knee medial meniscus tear POSTOPERATIVE DIAGNOSIS: Left knee medial meniscus tear OPERATION: Left knee arthroscopy with partial medial meniscectomy ANESTHESIA: General IMPLANTS: none TOURNIQUET TIME: Less than one hour, with a well-padded thigh tourniquet at 250 mmHg. SPECIMENS: None ESTIMATED BLOOD LOSS: minimal COMPLICATIONS: none STATUS: Stable from the operating room to the recovery room and then home. INDICATIONS FOR PROCEDURE: Aminah has had persistent left knee pain with a meniscus tear despite non- operative treatment. Both operative and non operative treatment alternatives were reviewed. Further, the nature and risks of surgery were reviewed in careful detail, in the office as well as the pre-operative holding area. Our discussions regarding the risks of surgery included, but were not limited to, infection, wound problems, nerve injury, neuroma, RSD, persistent symptoms, blood clot, failure of the surgery, need for further surgery, development of arthritis, and even the remote chance of catastrophic complication. DESCRIPTION OF PROCEDURE: The patient was seen in the preoperative holding unit and informed written consent was obtained. The appropriate extremity was marked. The patient was then brought to the operating room and carefully positioned on the operating room table. Anesthesia was induced. All bony prominences were padded with great care. A well-padded thigh tourniquet was placed. A chlorhexidine based pre- scrub was performed followed by a chloraprep prep and drape in standard sterile fashion. A surgical safety pause was then conducted in which we confirmed the appropriate patient, extremity, planned procedure, availability of equipment, indication and administration of prophylactic antibiotics, and DVT prophylaxis in the form of a compression boot on the non-surgical extremity. I began with an Esmarch exsanguination of the limb and inflated the tourniquet. I insufflated the joint by injecting sterile saline. I began by making a standard anterolateral knee arthroscopy portal. The arthroscope was inserted into the knee joint and a diagnostic arthroscopy was performed. She had mild degenerative changes in the medial compartment, but the patellofemoral and lateral compartments looked quite good. The lateral meniscus looked good as well. Then under direct visualization an anteromedial arthroscopy portal was made. I introduced a probe into the joint. This was used to probe the medial meniscus tear. A biter and oscillating shaver were used to debride the meniscal tear back to a stable rim. I then performed an extensive irrigation of the joint while running the shaver in each of the knee compartments to remove any loose debris. Once thoroughly irrigated and debrided , I suctioned the fluid out of the joint. The arthroscopy portals were then closed utilizing 3-0 nylon. A sterile dressing was then applied. The patient was then awakened from anesthesia and transferred to the recovery room in stable condition. There were no complications. All needle and sponge counts were correct at the end of the case. ATTESTATION: I attest I was present and scrubbed and performed the critical portions of the procedure myself. POSTOPERATIVE PLAN: The plan is for weight-bearing as tolerated with crutches. Follow-up will be in 2 weeks for likely suture removal.
[2019-12-02] MEDS ORDERED: Acetaminophen IV 1GM/100ML * 100 ML ONE (10:10)
[2019-12-02] MEDS ORDERED: Ketorolac INJ* 30 MG/ML 1 ML VIAL ONE (12:08)
[2019-12-02 12:30] VITALS: BP 100/73
[2019-12-02] MEDS ORDERED: Acetaminophen IV 1GM/100ML * 1,000 MG/100 ML VIAL IVPB ONE (14:07)
== END 2019-12-02 12:25 | disposition home or self-care (01) ==
LOC: OR 07:20
PROVIDERS: ATTEND Orthopaedic Surgery
DX: S83.222A Peripheral tear of medial meniscus, current injury, left knee, initial encounter (principal); M25.462 Effusion, left knee; Z87.891 Personal history of nicotine dependence; X58.XXXA Exposure to other specified factors, initial encounter; Y92.9 Unspecified place or not applicable; G47.33 Obstructive sleep apnea (adult) (pediatric); G25.0 Essential tremor; M79.7 Fibromyalgia; K76.0 Fatty (change of) liver, not elsewhere classified; M34.9 Systemic sclerosis, unspecified
CPT/HCPCS: J1100; J1200; J1885; J2250; J2405; J2704; J3010; J3490